=== PATIENT | female | born 1990 | race Two or more races ===

== ENCOUNTER 2018-12-27 21:05 | Emergency (ER) | payer SELFPAY ==
[~2018-12-27] VITALS: Ht 162.6 cm; Wt 72.6 kg
--- NOTE | 2018-12-27 21:32 | NUR ---
URINE COLLECTED AND SENT TO LAB
--- NOTE | 2018-12-27 21:39 | NUR ---
BIBS FOR C/O LOWER BAD PAINAND EXCESSIVE VAG BLEEDING INCLUDING BLOOD CLOT S/P VOLUNTARY D&C ON 12/22/18 (9 WEEKS ). PT ALSO REPORTED LOWER ABD PAIN. VSS. WILL CONT TO MONITOR ,
[2018-12-27] MEDS ORDERED: ACETAMINOPHEN 325 MG TABLET ONE (21:58)
[2018-12-27] MEDS ORDERED: ONDANSETRON HCL/PF 4 MG/2 ML VIAL ONE (21:58)
[2018-12-27] MEDS ORDERED: ACETAMINOPHEN 325 MG TABLET PO ONE (22:00)
[2018-12-27] MEDS ORDERED: IV NS 0.9% 1,000 ML BAG IV ONE (22:00)
[2018-12-27] MEDS ORDERED: ONDANSETRON HCL/PF 4 MG/2 ML VIAL IVP ONE (22:00)
[2018-12-27 22:05] LABS: BASOPHILS % (AUTO) 0.3 % (0.0-2.0); HEMATOCRIT 33 % (33-45); HEMOGLOBIN 11.8 g/dL (11.5-14.8); LYMPHOCYTES # (AUTO) 1.8 /CMM (0.8-4.8); LYMPHOCYTES % (AUTO) 16.5 % (20.0-44.0); MEAN CORPUSCULAR HGB CONC 35 g/dl (31.0-36.0); MEAN CORPUSCULAR VOLUME 95 fL (82-100); MONOCYTES # (AUTO) 0.7 /CMM (0.1-1.30); MONOCYTES % (AUTO) 6.1 % (2.0-12.0); NEUTROPHILS # (AUTO) 8.1 /CMM (1.8-8.9); NEUTROPHILS % (AUTO) 76.1 % (43.0-81.0); PLATELET COUNT (AUTO) 332 /CMM (150-450); RED BLOOD CELL COUNT(AUTO) 3.48 MIL/uL (4.0-5.2); WHITE BLOOD COUNT (AUTO) 10.7 K/uL (4.3-11.0)
[2018-12-27 22:11] LABS: CALCIUM, SERUM 8.8 mg/dL (8.5-10.1); CREATININE 0.8 mg/dL (0.6-1.3); POTASSIUM 3.4 mmol/L (3.5-5.1)
[2018-12-27 22:45] VITALS: BP 138/76
--- NOTE | 2018-12-27 23:20 | NUR ---
Patient discharged to home in stable condition. Rx & Written and verbal after care instructions given. Patient verbalizes understanding of instruction.
== END 2018-12-27 23:20 | disposition home or self-care (01) ==
LOC: ER 21:05
DX: N93.9 Abnormal uterine and vaginal bleeding, unspecified (principal); R42 Dizziness and giddiness; F10.10 Alcohol abuse, uncomplicated; Y90.9 Presence of alcohol in blood, level not specified; Z90.89 Acquired absence of other organs; Z98.890 Other specified postprocedural states; Z97.5 Presence of (intrauterine) contraceptive device
CPT/HCPCS: 36415; 76856; 80048; 84702; 85025; 96361; 96374; 99284; J2405; J7030